=== PATIENT | female | born 1980 | race Caucasian/White ===

== ENCOUNTER 2020-03-13 00:01 | Inpatient (IN) ==
[2020-03-13] MEDS ORDERED: INSULIN REGULAR, HUMAN 100 UNITS in NORMAL SALINE 100 ML IV PRN ×2 (00:07)
[2020-03-13] MEDS ORDERED: PENICILLIN G POTASSIUM 5 MILLIONUNT in DEXTROSE 5 % IN WATER 100 ML IV ONE ×2 (00:07)
[2020-03-13] MEDS ORDERED: RINGER'S SOLUTION,LACTATED 1,000 ML IV ONE (00:07)
[2020-03-13] MEDS ORDERED: OXYTOCIN/0.9 % SODIUM CHLORIDE 30 UNITS/500 ML BAG IV ONE ×2 (00:07→07:42)
[2020-03-13] MEDS ORDERED: ONDANSETRON 4 MG TAB.RAPDIS PO PRN (00:07)
[2020-03-13] MEDS ORDERED: MISOPROSTOL 100 MCG TABLET VG PRN (00:07)
[2020-03-13] MEDS ORDERED: CALCIUM CARBONATE 500 MG TAB.CHEW ONE ×2 (00:42→07:51)
[2020-03-13] MEDS ORDERED: PENICILLIN G POTASSIUM 2.5 MILLIONUNT in DEXTROSE 5 % IN WATER 100 ML IV SCH ×2 (04:07)
[2020-03-13] MEDS ORDERED: HYDROCORTISONE 30 APPL TUBE TP PRN (07:42)
[2020-03-13] MEDS ORDERED: MISOPROSTOL 200 MCG TABLET PO STA (07:42)
[2020-03-13] MEDS ORDERED: SENNOSIDES 8.6 MG TABLET PO PRN (07:42)
[2020-03-13] MEDS ORDERED: BENZOCAINE/MENTHOL 81 SPRAY CAN TP PRN (07:42)
[2020-03-13] MEDS ORDERED: BISACODYL 10 MG SUPP.RECT RC PRN (07:42)
[2020-03-13] MEDS ORDERED: GLYCERIN/WITCH HAZEL LEAF 40 APPL BOX TP PRN (07:42)
[2020-03-13] MEDS ORDERED: MISOPROSTOL 200 MCG TABLET RC STA (07:48)
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
--- NOTE | 2020-03-13 08:13 | OR ---
Operative Report - Dictated Report Narrative: Spontaneous vaginal delivery of vigorously crying viable female at 0718 on 03/13/2020 with Apgars 9 and 9, weighing 3097 g in JAY position. Cord clamping delayed approximately 1 minute Placenta delivered complete, intact, with three vessel cord Estimated blood loss: Less than 50 at time of delivery but within 15 minutes began hemorrhaging with a total estimated blood loss of 1000 mL which responded to uterine evacuation, uterine massage, Pitocin 30 milliunits/min IV, and 1000 mcg of Cytotec rectally. Anesthesia: Epidural Lacerations: None
[2020-03-13] MEDS: CALCIUM CARBONATE 500 MG TAB.CHEW PO PRN ×3 (08:16→21:43)
[2020-03-13] MEDS: IBUPROFEN 800 MG TABLET PO PRN ×2 (08:41→21:43)
[2020-03-13] MEDS ORDERED: CALCIUM CARBONATE 500 MG TAB.CHEW PO SCH (09:00)
[2020-03-13] MEDS: DOCUSATE SODIUM 100 MG CAPSULE PO SCH ×2 (13:05→20:37)
[2020-03-13] MEDS ORDERED: ACETAMINOPHEN 325 MG TABLET PO PRN (17:50)
[2020-03-13] MEDS: oxyCODONE HCL/ACETAMINOPHEN 1 TAB TABLET PO PRN (17:55)
[2020-03-14] MEDS: IBUPROFEN 800 MG TABLET PO PRN ×4 (04:24→23:32)
[2020-03-14] MEDS: CALCIUM CARBONATE 500 MG TAB.CHEW PO PRN (04:24)
--- NOTE | 2020-03-14 06:03 | PN ---
Subjective - Date and Time Seen Date: 03/14/20 Time: 06:00 Objective - Vitals Vitals: Last Vital Signs Temp 36.4 C 03/14/20 00:40 Pulse 55 L 03/14/20 00:40 Resp 18 03/14/20 00:40 BP 113/55 03/14/20 00:40 Pulse Ox 95 03/14/20 00:40 Patient denies complaints. Specifically denies lightheadedness/dizziness, or weakness. Breast-feeding well. Fasting blood sugar 81 lochia wnl abdomen - soft, nontender Uterus -firm, at umbilicus - 1 No calf tenderness Impression: day #1 - s/p spontaneous vaginal delivery. hemorrhage (estimated 1000 mL blood loss)-stable. Gestational diabetes-resolved Plan: Continue routine care. Check 1 hour postprandial blood sugar after eating breakfast. Assessment/Plan - Problems/Diagnosis (1) Encounter for induction of labor Problem: Acute (2) Advanced maternal age (AMA) in Problem: Chronic (3) Grand multipara Problem: Chronic (4) History of gestational hypertension Problem: Chronic (5) Gestational diabetes Problem: Acute Qualifiers: Gestational diabetes mellitus control: diet-controlled Trimester: third trimester Qualified Code(s): O24.410 - Gestational diabetes mellitus in , diet controlled (6) History of gastric bypass Problem: Acute (7) Anemia Problem: Acute Qualifiers: Anemia type: iron deficiency Iron deficiency anemia type: inadequate dietary iron intake Qualified Code(s): D50.8 - Other iron deficiency anemias (8) BMI 45.0-49.9, adult Problem: Chronic (9) hemorrhage Problem: Resolved Qualifiers: hemorrhage type: third-stage Qualified Code(s): O72.0 - Third- stage hemorrhage History for MU History for Definition: * The number of deliveries resulting in a live the patient experienced prior to current hospitalization * The previous delivery of live twins or any live multiple gestation is considered one live event. *If primagravida or nulliparous is documented select zero for the number of previous live births. Live Events: Live Events: 6
[2020-03-14] MEDS: DOCUSATE SODIUM 100 MG CAPSULE PO SCH ×3 (07:42→20:39)
[2020-03-14] MEDS: oxyCODONE HCL/ACETAMINOPHEN 1 TAB TABLET PO PRN ×2 (07:42→17:24)
[2020-03-15] MEDS: oxyCODONE HCL/ACETAMINOPHEN 1 TAB TABLET PO PRN (02:04)
[2020-03-15] MEDS: CALCIUM CARBONATE 500 MG TAB.CHEW PO PRN (02:04)
[2020-03-15] MEDS: DOCUSATE SODIUM 100 MG CAPSULE PO SCH (08:28)
[2020-03-15] MEDS: IBUPROFEN 800 MG TABLET PO PRN (08:28)
[2020-03-15 09:06] VITALS: BP 130/70
--- NOTE | 2020-03-15 12:23 | PN ---
Subjective - Date and Time Seen Date: 03/15/20 Time: 12:21 Objective - Vitals Vitals: Last Vital Signs Temp 36.7 C 03/15/20 08:30 Pulse 67 03/15/20 08:30 Resp 18 03/15/20 08:30 BP 130/70 03/15/20 08:30 Pulse Ox 98 03/14/20 23:36 Patient denies complaints. Breast-feeding. Lochia wnl abdomen - soft, nontender Uterus -firm, at umbilicus - 2 No calf tenderness Impression: day #2 - s/p spontaneous vaginal delivery. hemorrhage-resolved Plan: Routine discharge instructions. hemorrhage precautions. Assessment/Plan - Problems/Diagnosis (1) Encounter for induction of labor Problem: Resolved (2) Advanced maternal age (AMA) in Problem: Chronic (3) Grand multipara Problem: Chronic (4) History of gestational hypertension Problem: Chronic (5) Gestational diabetes Problem: Resolved Qualifiers: Gestational diabetes mellitus control: diet-controlled Trimester: third trimester Qualified Code(s): O24.410 - Gestational diabetes mellitus in , diet controlled (6) History of gastric bypass Problem: Chronic (7) Anemia Problem: Chronic Qualifiers: Anemia type: iron deficiency Iron deficiency anemia type: inadequate dietary iron intake Qualified Code(s): D50.8 - Other iron deficiency anemias (8) BMI 45.0-49.9, adult Problem: Chronic (9) hemorrhage Problem: Resolved Qualifiers: hemorrhage type: third-stage Qualified Code(s): O72.0 - Third- stage hemorrhage
== END 2020-03-15 13:20 | disposition home or self-care (01) | DRG 806 ==
LOC: OB 00:01
PROVIDERS: ADMIT Obstetrics & Gynecology; ATTEND Obstetrics & Gynecology